=== PATIENT | female | born 1930 | race African-American/Black ===

== ENCOUNTER 2016-12-12 10:09 | Inpatient (IN) | payer OTHER ==
[~2016-12-12] VITALS: Ht 167.6 cm; Wt 62.0 kg
[2016-12-12 10:51] LABS: BASOPHILS % (AUTO) 0.3 % (0.0-2.0); EOSINOPHILS % (AUTO) 1.7 % (1.0-6.0); HEMOGLOBIN 11.2 g/dL (12.0-16.0); LYMPHOCYTES # (AUTO) 5.2 K/uL (1.0-4.8); LYMPHOCYTES % (AUTO) 43.8 % (22.0-44.0); MEAN CORPUSCULAR VOLUME 94 fL (80-100); MONOCYTES # (AUTO) 0.5 K/uL (0.1-1.0); MONOCYTES % (AUTO) 4.2 % (2.0-9.0); PLATELET COUNT (AUTO) 160 K/uL (150-450); RED BLOOD CELL COUNT(AUTO) 3.72 MIL/uL (4.00-5.20); RED CELL DISTRIBUTION WIDTH 14.9 % (11.5-14.5); WHITE BLOOD COUNT (AUTO) 11.9 K/uL (4.5-11.0)
[2016-12-12 11:00] LABS: CREATININE 2.2 mg/dL (0.60-1.30); INR 1.1 (0.9-1.1); POTASSIUM 5.2 mmol/L (3.5-5.1); PROTHROMBIN TIME 11.6 SEC (9.4-11.6)
[2016-12-12] MEDS: PROPOFOL 1000 MG/ISO-OSM 100 ML IV PRN ×3 (11:00→21:41)
[2016-12-12 11:06] LABS: APPEARANCE,URINE CLOUDY (CLEAR); GLUCOSE, URINE (UA) NEGATIVE (NEGATIVE); KETONES,URINE NEGATIVE (NEGATIVE); LEUKOCYTE ESTERASE ,URINE SMALL (NEGATIVE); OCCULT BLOOD,URINE NEGATIVE (NEGATIVE); PROTEIN,URINE SEE CONFIRM (NEGATIVE)
[2016-12-12 11:07] LABS: ADD UA MICROSCOPIC YES
[2016-12-12] MEDS ORDERED: PROPOFOL 1000 MG/ISO-OSM 100 ML IV ONE (11:09)
[2016-12-12] MEDS ORDERED: DOPamine HCL 400 MG/D5%-WATER 250 ML IV PRN (11:14)
[2016-12-12 11:16] LABS: SULFOSALICYLIC ACID,URINE 3+ (Negative)
[2016-12-12 11:17] LABS: RBC,URINE 0-2 /HPF (0-2)
[2016-12-12 11:18] LABS: SQUAMOUS EPITHELIAL CELL,UR Few /LPF (None Seen)
[2016-12-12 11:25] LABS: BILIRUBIN,TOTAL 0.3 mg/dL (0.1-1.0); CREATINE KINASE MB 24.7 ng/mL (0-5); TOTAL PROTEIN, SERUM 6.9 g/dL (6.4-8.2)
[2016-12-12 11:29] LABS: ABG A-A DIFF O2 192.9 mmHg (10-20.0); ABG BASE EXCESS -3.3 mmol/L (-2.0-3.0); ABG OXYHEMOGLOBIN 98.7 % (94.0-100.0); ABG PCO2 38 mmHg (35-45); ABG PH 7.381 (7.35-7.450)
[2016-12-12 11:30] LABS: ALLEN TEST, BLOOD GAS Positive
[2016-12-12] MEDS ORDERED: ALBUTEROL SULFATE 2.5 MG/0.5 ML NEB SOLUTION NEB PRN (12:00)
[2016-12-12] MEDS ORDERED: DEXTROSE 50%-WATER 25 GM/50 ML SYRINGE IVP PRN (12:15)
[2016-12-12] MEDS ORDERED: CARV12 PO (12:27)
[2016-12-12] MEDS ORDERED: CACARB500 PO (12:27)
[2016-12-12] MEDS ORDERED: GABA-533 PO (12:27)
[2016-12-12] MEDS ORDERED: MIRAUD PO (12:27)
[2016-12-12] MEDS ORDERED: HYDR-3965 PO (12:27)
[2016-12-12] MEDS ORDERED: OMEG300C3 PO (12:27)
[2016-12-12] MEDS ORDERED: ONDA4 PO (12:27)
[2016-12-12] MEDS ORDERED: FERG325 PO (12:27)
[2016-12-12] MEDS ORDERED: ISOS10TA16 PO (12:27)
[2016-12-12] MEDS ORDERED: ASPI81 PO (12:27)
[2016-12-12] MEDS ORDERED: ALBU8HFA IH (12:27)
[2016-12-12] MEDS ORDERED: HYDR50 PO (12:27)
[2016-12-12] MEDS ORDERED: XALA2.5OS OU (12:27)
[2016-12-12] MEDS ORDERED: LOSA50TA37 PO (12:27)
[2016-12-12] MEDS ORDERED: BUME1TAB30 PO (12:27)
[2016-12-12] MEDS ORDERED: OMEP20 PO (12:27)
[2016-12-12] MEDS ORDERED: METF500T4 PO (12:27)
[2016-12-12] MEDS ORDERED: 0.9% SODIUM CHLORIDE 5 ML NEB SOLUTION NEB ONE ×2 (13:13→19:37)
[2016-12-12] MEDS: ALBUTEROL SULFATE 2.5 MG/0.5 ML NEB SOLUTION NEB SCH ×2 (13:17→19:41)
[2016-12-12] MEDS ORDERED: SODIUM CHLORIDE 0.9% 250 ML IV ONE (13:36)
[2016-12-12] MEDS: CefTRIAXone 1 GM/DEXTROSE 50 ML IV SCH (13:36)
[2016-12-12 14:00] VITALS: BP 101/35
[2016-12-12] MEDS: DEXTROSE 5%-0.45% SODIUM CHL 1,000 ML IV SCH (15:03)
[2016-12-12 16:00] VITALS: BP 121/56
[2016-12-12] MEDS ORDERED: 0.9% SODIUM CHLORIDE 10 ML SYRINGE IVP PRN (16:00)
[2016-12-12] MEDS: HEPARIN SODIUM,PORCINE 5,000 UNITS/ML VIAL SQ SCH ×2 (16:15→23:16)
[2016-12-12] MEDS ORDERED: SODIUM BICARBONATE [ADULT] 8.4% 50 MEQ/50 ML SYRINGE IVP ONE (16:32)
[2016-12-12] MEDS ORDERED: DOPamine HCL/D5W 400 MG/250 ML IV BAG IV ONE (16:32)
[2016-12-12] MEDS ORDERED: EPINEPHrine 1:10,000 [1 MG/10 ML] SYRINGE IVP ONE (16:32)
[2016-12-12] MEDS ORDERED: SODIUM CHLORIDE 0.9% 500 ML IV ONE (17:21)
[2016-12-12] MEDS: INSULIN ASPART 100 UNITS/ML SQ PRN ×2 (19:27→23:15)
[2016-12-12 20:00] VITALS: BP 141/59
[2016-12-12 20:50] LABS: ALBUMIN 3.4 g/dL (3.4-5.0); BILIRUBIN,TOTAL 0.4 mg/dL (0.1-1.0); CALCIUM, TOTAL 8.9 mg/dL (8.8-10.5); CREATININE 1.8 mg/dL (0.60-1.30); MAGNESIUM 2.1 mg/dL (1.80-2.40); POTASSIUM 4.5 mmol/L (3.5-5.1); TOTAL PROTEIN, SERUM 7.4 g/dL (6.4-8.2)
[2016-12-12 22:41] LABS: GLUCOSE COMMENT 1 Received Meds; GLUCOSE,POINT OF CARE 279 MG/DL (70-110)
[2016-12-13] VITALS (8 sets, daily range): BP systolic 130–165; BP diastolic 36–56
[2016-12-13] MEDS: DEXTROSE 5%-0.45% SODIUM CHL 1,000 ML IV SCH ×2 (00:50→12:43)
[2016-12-13] MEDS ORDERED: DOPamine HCL 400 MG/D5%-WATER 250 ML IV PRN (02:21)
[2016-12-13] MEDS: ALBUTEROL SULFATE 2.5 MG/0.5 ML NEB SOLUTION NEB SCH ×4 (02:31→20:47)
[2016-12-13] MEDS ORDERED: 0.9% SODIUM CHLORIDE 5 ML NEB SOLUTION NEB ONE ×4 (02:32→20:47)
[2016-12-13] MEDS: PROPOFOL 1000 MG/ISO-OSM 100 ML IV PRN ×3 (02:55→21:09)
[2016-12-13] MEDS: MORPHINE SULFATE 2 MG/ML SYRINGE IVP PRN (03:04)
[2016-12-13] MEDS: INSULIN ASPART 100 UNITS/ML SQ PRN ×4 (04:26→23:01)
[2016-12-13 05:33] LABS: CALCIUM, TOTAL 8.8 mg/dL (8.8-10.5); CREATININE 1.38 mg/dL (0.60-1.30); POTASSIUM 4.3 mmol/L (3.5-5.1)
[2016-12-13 05:39] LABS: ALBUMIN 3.2 g/dL (3.4-5.0); BILIRUBIN,TOTAL 0.4 mg/dL (0.1-1.0); CHOL/HDL RATIO 5.3 (3.9-5.7); MAGNESIUM 2.1 mg/dL (1.80-2.40); PHOSPHORUS 3.5 mg/dL (2.5-4.9); TOTAL PROTEIN, SERUM 7.2 g/dL (6.4-8.2)
[2016-12-13 05:48] LABS: BASOPHILS # (AUTO) 0.02 K/uL (0.00-0.20); BASOPHILS % (AUTO) 0.2 % (0.0-2.0); EOSINOPHILS # (AUTO) 0.02 K/uL (0.00-0.70); EOSINOPHILS % (AUTO) 0.17 % (1.0-6.0); HEMATOCRIT 29.7 % (36-46); LYMPHOCYTES # (AUTO) 0.9 K/uL (1.0-4.8); MEAN CORPUSCULAR HEMOGLOBIN 30.6 pg (26.0-34.0); MEAN CORPUSCULAR HGB CONC 33.5 G/dL (31.0-37.0); MEAN CORPUSCULAR VOLUME 91 fL (80-100); MONOCYTES # (AUTO) 0.7 K/uL (0.1-1.0); MONOCYTES % (AUTO) 6.7 % (2.0-9.0); NEUTROPHILS # (AUTO) 9.4 K/uL (1.8-7.7); NEUTROPHILS % (AUTO) 85.1 % (40.0-70.0); PLATELET COUNT (AUTO) 170 K/uL (150-450); RED BLOOD CELL COUNT(AUTO) 3.25 MIL/uL (4.00-5.20); RED CELL DISTRIBUTION WIDTH 14.4 % (11.5-14.5)
[2016-12-13 06:04] LABS: HEMOGLOBIN A1C 7.4 % (4.5-6.2)
[2016-12-13] MEDS ORDERED: SODIUM CHLORIDE 0.9% 500 ML IV ONE (07:46)
[2016-12-13 08:13] LABS: VITAMIN B12 LEVEL 1946 pg/mL (211-911)
[2016-12-13] MEDS ORDERED: HEPARIN SODIUM 25000 UNITS/D5W 250 ML IV PRN (08:45)
[2016-12-13] MEDS ORDERED: HEPARIN SODIUM,PORCINE 5,000 UNITS/ML VIAL IVP PRN ×2 (08:45)
[2016-12-13] MEDS ORDERED: HEPARIN SODIUM,PORCINE 5,000 UNITS/ML VIAL IVP ONE (09:00)
[2016-12-13] MEDS: ASPIRIN 81 MG CHEWABLE TABLET PO SCH ×2 (09:10→20:15)
[2016-12-13] MEDS: PANTOPRAZOLE SODIUM 40 MG/VIAL IVP SCH (09:10)
[2016-12-13 09:32] LABS: INR 1.1 (0.9-1.1); PROTHROMBIN TIME 11.3 SEC (9.4-11.6)
[2016-12-13 09:37] LABS: GLUCOSE COMMENT 1 Received Meds; GLUCOSE,POINT OF CARE 171 MG/DL (70-110)
[2016-12-13 09:37] LABS: GLUCOSE COMMENT 1 Received Meds; GLUCOSE,POINT OF CARE 142 MG/DL (70-110)
[2016-12-13 11:29] LABS: ALBUMIN 3.1 g/dL (3.4-5.0); BILIRUBIN,TOTAL 0.5 mg/dL (0.1-1.0); CALCIUM, TOTAL 8.8 mg/dL (8.8-10.5); CREATININE 1.34 mg/dL (0.60-1.30); PHOSPHORUS 3.5 mg/dL (2.5-4.9); POTASSIUM 3.7 mmol/L (3.5-5.1); TOTAL PROTEIN, SERUM 6.9 g/dL (6.4-8.2)
[2016-12-13] MEDS: CefTRIAXone 1 GM/DEXTROSE 50 ML IV SCH (12:43)
[2016-12-13] MEDS ORDERED: AMIODARONE HCL 360 MG in DEXTROSE 5%-WATER 242.8 ML IV ONE (13:30)
[2016-12-13] MEDS ORDERED: ACETAMINOPHEN 650 MG/20.3 ML SOLUTION UDCUP NG SCH ×2 (14:00→20:00)
[2016-12-13 17:22] LABS: BILIRUBIN,TOTAL 0.3 mg/dL (0.1-1.0); CALCIUM, TOTAL 8.5 mg/dL (8.8-10.5); CREATININE 1.36 mg/dL (0.60-1.30); MAGNESIUM 1.9 mg/dL (1.80-2.40); PHOSPHORUS 3.4 mg/dL (2.5-4.9); POTASSIUM 3.7 mmol/L (3.5-5.1); TOTAL PROTEIN, SERUM 6.7 g/dL (6.4-8.2)
[2016-12-13 17:27] LABS: GLUCOSE,POINT OF CARE 142 MG/DL (70-110)
[2016-12-13 17:27] LABS: GLUCOSE COMMENT 1 Received Meds; GLUCOSE,POINT OF CARE 181 MG/DL (70-110)
[2016-12-13] MEDS ORDERED: AMIODARONE HCL 540 MG in DEXTROSE 5%-WATER 239.2 ML IV ONE (19:30)
[2016-12-13] MEDS: CEFEPIME HCL 1 GM in DEXTROSE 5%-WATER 50 ML IV SCH (21:21)
[2016-12-14] VITALS (8 sets, daily range): BP systolic 131–163; BP diastolic 28–57
[2016-12-14] MEDS ORDERED: 0.9% SODIUM CHLORIDE 5 ML NEB SOLUTION NEB ONE ×4 (01:26→20:19)
[2016-12-14] MEDS: ALBUTEROL SULFATE 2.5 MG/0.5 ML NEB SOLUTION NEB SCH ×4 (01:27→20:19)
[2016-12-14] MEDS: DEXTROSE 5%-0.45% SODIUM CHL 1,000 ML IV SCH ×2 (01:46→14:15)
[2016-12-14] MEDS: PROPOFOL 1000 MG/ISO-OSM 100 ML IV PRN ×3 (03:38→20:29)
[2016-12-14] MEDS: INSULIN ASPART 100 UNITS/ML SQ PRN ×3 (05:02→22:34)
[2016-12-14 06:10] LABS: BASOPHILS % (AUTO) 0.1 % (0.0-2.0); EOSINOPHILS % (AUTO) 1.3 % (1.0-6.0); HEMATOCRIT 26.3 % (36-46); HEMOGLOBIN 8.7 g/dL (12.0-16.0); LYMPHOCYTES # (AUTO) 1.6 K/uL (1.0-4.8); LYMPHOCYTES % (AUTO) 14.5 % (22.0-44.0); MEAN CORPUSCULAR HEMOGLOBIN 30.5 pg (26.0-34.0); MEAN CORPUSCULAR VOLUME 93 fL (80-100); MONOCYTES # (AUTO) 0.7 K/uL (0.1-1.0); MONOCYTES % (AUTO) 6.2 % (2.0-9.0); NEUTROPHILS # (AUTO) 8.4 K/uL (1.8-7.7); NEUTROPHILS % (AUTO) 77.9 % (40.0-70.0); PLATELET COUNT (AUTO) 150 K/uL (150-450); RED BLOOD CELL COUNT(AUTO) 2.84 MIL/uL (4.00-5.20); RED CELL DISTRIBUTION WIDTH 14.4 % (11.5-14.5); WHITE BLOOD COUNT (AUTO) 10.8 K/uL (4.5-11.0)
[2016-12-14 06:25] LABS: ALBUMIN 2.8 g/dL (3.4-5.0); BILIRUBIN,TOTAL 0.4 mg/dL (0.1-1.0); CALCIUM, TOTAL 8.4 mg/dL (8.8-10.5); CREATININE 1.28 mg/dL (0.60-1.30); POTASSIUM 3.5 mmol/L (3.5-5.1); TOTAL PROTEIN, SERUM 6.5 g/dL (6.4-8.2)
[2016-12-14 06:47] LABS: GLUCOSE COMMENT 1 Received Meds; GLUCOSE,POINT OF CARE 185 MG/DL (70-110)
[2016-12-14 06:47] LABS: GLUCOSE COMMENT 1 Received Meds; GLUCOSE,POINT OF CARE 185 MG/DL (70-110)
[2016-12-14 07:59] LABS: ABG A-A DIFF O2 63.8 mmHg (10-20.0); ABG BASE EXCESS 2.6 mmol/L (-2.0-3.0); ABG HCO3 26.8 mmol/L (22.0-26.0); ABG OXYHEMOGLOBIN 96.8 % (94.0-100.0); ABG PCO2 36 mmHg (35-45); ABG PH 7.481 (7.35-7.450); TEMPERATURE, FAHRENHEIT, BG 98.6 FAHREN (96.0-98.6)
[2016-12-14] MEDS ORDERED: SODIUM CHLORIDE 0.9% 500 ML IV ONE (08:51)
[2016-12-14] MEDS: ASPIRIN 81 MG CHEWABLE TABLET PO SCH (08:54)
[2016-12-14] MEDS ORDERED: SODIUM CHLORIDE 0.9% 250 ML IV ONE (08:54)
[2016-12-14] MEDS: METOPROLOL TARTRATE 25 MG TABLET PO SCH ×2 (08:54→20:28)
[2016-12-14] MEDS: PANTOPRAZOLE SODIUM 40 MG/VIAL IVP SCH (08:54)
[2016-12-14] MEDS: ACETAMINOPHEN 325 MG TABLET PO PRN ×2 (08:54→14:18)
[2016-12-14] MEDS: POTASSIUM CHL 10 MEQ/WATER 50 ML IV SCH ×4 (08:54→11:04)
[2016-12-14] MEDS: CEFEPIME HCL 1 GM in DEXTROSE 5%-WATER 50 ML IV SCH ×2 (10:25→21:15)
[2016-12-14 10:30] LABS: MAGNESIUM 1.8 mg/dL (1.80-2.40); PHOSPHORUS 3.5 mg/dL (2.5-4.9)
[2016-12-14 11:57] LABS: GLUCOSE COMMENT 1 Received Meds; GLUCOSE,POINT OF CARE 167 MG/DL (70-110)
[2016-12-14] MEDS ORDERED: AMIODARONE HCL 750 MG in DEXTROSE 5%-WATER 485 ML IV SCH (13:30)
[2016-12-14 17:58] LABS: GLUCOSE,POINT OF CARE 138 MG/DL (70-110)
[2016-12-14] MEDS: MORPHINE SULFATE 2 MG/ML SYRINGE IVP PRN (19:21)
[2016-12-14] MEDS: LORazepam 2 MG/ML VIAL IVP PRN (21:37)
[2016-12-15] VITALS (9 sets, daily range): BP systolic 118–167; BP diastolic 27–73
[2016-12-15] MEDS: MORPHINE SULFATE 2 MG/ML SYRINGE IVP PRN ×3 (01:13→20:52)
[2016-12-15] MEDS: PROPOFOL 1000 MG/ISO-OSM 100 ML IV PRN ×4 (01:48→19:55)
[2016-12-15] MEDS: ALBUTEROL SULFATE 2.5 MG/0.5 ML NEB SOLUTION NEB SCH ×4 (03:00→19:39)
[2016-12-15] MEDS ORDERED: 0.9% SODIUM CHLORIDE 5 ML NEB SOLUTION NEB ONE ×3 (03:00→19:38)
[2016-12-15 05:22] LABS: ALBUMIN 2.6 g/dL (3.4-5.0); BILIRUBIN,TOTAL 0.4 mg/dL (0.1-1.0); CALCIUM, TOTAL 8.4 mg/dL (8.8-10.5); CREATININE 1.3 mg/dL (0.60-1.30); PHOSPHORUS 2.7 mg/dL (2.5-4.9); TOTAL PROTEIN, SERUM 6.2 g/dL (6.4-8.2)
[2016-12-15 05:42] LABS: GLUCOSE COMMENT 1 Received Meds; GLUCOSE,POINT OF CARE 161 MG/DL (70-110)
[2016-12-15 05:42] LABS: GLUCOSE COMMENT 1 Received Meds; GLUCOSE,POINT OF CARE 150 MG/DL (70-110)
[2016-12-15 06:30] LABS: BASOPHILS # (AUTO) 0.04 K/uL (0.00-0.20); BASOPHILS % (AUTO) 0.4 % (0.0-2.0); EOSINOPHILS # (AUTO) 0.23 K/uL (0.00-0.70); EOSINOPHILS % (AUTO) 2.62 % (1.0-6.0); HEMATOCRIT 21.3 % (36-46); HEMOGLOBIN 7.2 g/dL (12.0-16.0); LYMPHOCYTES # (AUTO) 1.4 K/uL (1.0-4.8); LYMPHOCYTES % (AUTO) 15.8 % (22.0-44.0); MEAN CORPUSCULAR HGB CONC 33.7 G/dL (31.0-37.0); MEAN CORPUSCULAR VOLUME 92 fL (80-100); MONOCYTES # (AUTO) 0.6 K/uL (0.1-1.0); MONOCYTES % (AUTO) 6.7 % (2.0-9.0); NEUTROPHILS # (AUTO) 6.4 K/uL (1.8-7.7); NEUTROPHILS % (AUTO) 74.5 % (40.0-70.0); PLATELET COUNT (AUTO) 116 K/uL (150-450); RED BLOOD CELL COUNT(AUTO) 2.31 MIL/uL (4.00-5.20); RED CELL DISTRIBUTION WIDTH 14.9 % (11.5-14.5); WHITE BLOOD COUNT (AUTO) 8.6 K/uL (4.5-11.0)
[2016-12-15 08:27] LABS: ABG A-A DIFF O2 47.5 mmHg (10-20.0); ABG BASE EXCESS 0.4 mmol/L (-2.0-3.0); ABG PCO2 32 mmHg (35-45); ABG PH 7.486 (7.35-7.450); TEMPERATURE, FAHRENHEIT, BG 98.6 FAHREN (96.0-98.6)
[2016-12-15] MEDS: METOPROLOL TARTRATE 25 MG TABLET PO SCH ×2 (08:37→20:30)
[2016-12-15] MEDS ORDERED: ASPIRIN 81 MG CHEWABLE TABLET PO SCH (09:00)
[2016-12-15] MEDS: PANTOPRAZOLE SODIUM 40 MG/VIAL IVP SCH (10:11)
[2016-12-15] MEDS: CEFEPIME HCL 1 GM in DEXTROSE 5%-WATER 50 ML IV SCH (10:11)
[2016-12-15] MEDS ORDERED: ISOS20TA9 PO (12:06)
[2016-12-15] MEDS: INSULIN ASPART 100 UNITS/ML SQ PRN ×2 (14:22→23:13)
[2016-12-15] MEDS: ACETAMINOPHEN 325 MG TABLET PO PRN ×2 (14:30→20:39)
[2016-12-15] MEDS ORDERED: LACTULOSE 20 GM/30 ML SOLUTION UDCUP NG PRN (15:15)
[2016-12-15] MEDS ORDERED: SENNA 218 MG/5 ML LIQUID ORAL.SYG NG PRN (15:15)
[2016-12-15] MEDS ORDERED: SODIUM CHLORIDE 0.9% 500 ML IV ONE (15:44)
[2016-12-15] MEDS: PIPERACILLIN/TAZO 3.375 GM/D5W 50 ML IV SCH ×2 (16:57→21:40)
[2016-12-15] MEDS: LORazepam 2 MG/ML VIAL IVP PRN (23:33)
[2016-12-16] VITALS (16 sets, daily range): BP systolic 124–191; BP diastolic 30–48
[2016-12-16] MEDS ORDERED: 0.9% SODIUM CHLORIDE 5 ML NEB SOLUTION NEB ONE ×3 (01:51→14:32)
[2016-12-16] MEDS: ALBUTEROL SULFATE 2.5 MG/0.5 ML NEB SOLUTION NEB SCH ×3 (01:57→14:31)
[2016-12-16] MEDS ORDERED: SODIUM CHLORIDE 0.9% 500 ML IV ONE (02:36)
[2016-12-16] MEDS: LORazepam 2 MG/ML VIAL IVP PRN ×2 (04:06→12:00)
[2016-12-16] MEDS: PIPERACILLIN/TAZO 3.375 GM/D5W 50 ML IV SCH ×3 (04:08→16:32)
[2016-12-16] MEDS: INSULIN ASPART 100 UNITS/ML SQ PRN ×3 (04:33→17:25)
[2016-12-16 04:52] LABS: GLUCOSE COMMENT 1 Received Meds; GLUCOSE,POINT OF CARE 164 MG/DL (70-110)
[2016-12-16 04:52] LABS: GLUCOSE COMMENT 1 Received Meds; GLUCOSE,POINT OF CARE 174 MG/DL (70-110)
[2016-12-16 06:02] LABS: BASOPHILS % (AUTO) 0.4 % (0.0-2.0); EOSINOPHILS % (AUTO) 2.5 % (1.0-6.0); LYMPHOCYTES # (AUTO) 0.9 K/uL (1.0-4.8); LYMPHOCYTES % (AUTO) 10.1 % (22.0-44.0); MEAN CORPUSCULAR HEMOGLOBIN 30.2 pg (26.0-34.0); MEAN CORPUSCULAR HGB CONC 32.6 G/dL (31.0-37.0); MEAN CORPUSCULAR VOLUME 93 fL (80-100); MONOCYTES # (AUTO) 0.9 K/uL (0.1-1.0); MONOCYTES % (AUTO) 9.5 % (2.0-9.0); NEUTROPHILS % (AUTO) 77.5 % (40.0-70.0); PLATELET COUNT (AUTO) 120 K/uL (150-450); RED BLOOD CELL COUNT(AUTO) 2.18 MIL/uL (4.00-5.20); RED CELL DISTRIBUTION WIDTH 14.7 % (11.5-14.5)
[2016-12-16 06:08] LABS: ALBUMIN 2.5 g/dL (3.4-5.0); BILIRUBIN,TOTAL 0.6 mg/dL (0.1-1.0); CALCIUM, TOTAL 8.5 mg/dL (8.8-10.5); CREATININE 1.57 mg/dL (0.60-1.30); MAGNESIUM 2.2 mg/dL (1.80-2.40); TOTAL PROTEIN, SERUM 6.3 g/dL (6.4-8.2)
[2016-12-16 06:46] LABS: HEMOGLOBIN 6.6 g/dL (12.0-16.0)
[2016-12-16 06:47] LABS: HEMATOCRIT 20.2 % (36-46)
[2016-12-16 07:23] LABS: GLUCOSE COMMENT 1 Received Meds; GLUCOSE,POINT OF CARE 160 MG/DL (70-110)
[2016-12-16 07:26] LABS: GLUCOSE,POINT OF CARE 145 MG/DL (70-110)
[2016-12-16] MEDS: PROPOFOL 1000 MG/ISO-OSM 100 ML IV PRN ×3 (07:31→16:32)
[2016-12-16] MEDS: PANTOPRAZOLE SODIUM 40 MG/VIAL IVP SCH (08:02)
[2016-12-16] MEDS ORDERED: SODIUM CHLORIDE 0.9% 250 ML IV ONE (08:02)
[2016-12-16] MEDS ORDERED: ASPIRIN 81 MG CHEWABLE TABLET PO SCH (09:00)
[2016-12-16 09:08] LABS: RBC MORPHOLOGY COMMENT NORMAL RBC MORPH
[2016-12-16] MEDS: METOPROLOL TARTRATE 25 MG TABLET PO SCH (09:24)
[2016-12-16 11:33] LABS: ABG A-A DIFF O2 60.7 mmHg (10-20.0); ABG BASE EXCESS -4.4 mmol/L (-2.0-3.0); ABG HCO3 21.4 mmol/L (22.0-26.0); ABG OXYHEMOGLOBIN 97.1 % (94.0-100.0); ABG PCO2 28 mmHg (35-45); ABG PH 7.455 (7.35-7.450); TEMPERATURE, FAHRENHEIT, BG 98.6 FAHREN (96.0-98.6)
[2016-12-16 12:47] LABS: GLUCOSE COMMENT 1 Received Meds; GLUCOSE,POINT OF CARE 165 MG/DL (70-110)
[2016-12-16] MEDS ORDERED: METOPROLOL TARTRATE 25 MG TABLET PO ONE (13:45)
[2016-12-16] MEDS ORDERED: HydrALAZINE HCL 20 MG/ML VIAL IVP PRN (13:45)
[2016-12-16 13:46] LABS: HEPATITIS Bs ANTIGEN SCREEN P Negative (Negative); HEPATITIS C AB SCREEN <0.1 s/co ratio (0.0-0.9)
[2016-12-16 14:12] LABS: BASOPHILS % (AUTO) 0.4 % (0.0-2.0); EOSINOPHILS % (AUTO) 3.6 % (1.0-6.0); HEMATOCRIT 27.9 % (36-46); HEMOGLOBIN 9.3 g/dL (12.0-16.0); LYMPHOCYTES % (AUTO) 10.9 % (22.0-44.0); MEAN CORPUSCULAR HEMOGLOBIN 30.8 pg (26.0-34.0); MEAN CORPUSCULAR HGB CONC 33.3 G/dL (31.0-37.0); MEAN CORPUSCULAR VOLUME 92 fL (80-100); MONOCYTES % (AUTO) 10.9 % (2.0-9.0); NEUTROPHILS # (AUTO) 6.9 K/uL (1.8-7.7); NEUTROPHILS % (AUTO) 74.2 % (40.0-70.0); PLATELET COUNT (AUTO) 117 K/uL (150-450); RED BLOOD CELL COUNT(AUTO) 3.02 MIL/uL (4.00-5.20); RED CELL DISTRIBUTION WIDTH 13.7 % (11.5-14.5); WHITE BLOOD COUNT (AUTO) 9.4 K/uL (4.5-11.0)
[2016-12-16 19:27] LABS: GLUCOSE COMMENT 1 Received Meds; GLUCOSE,POINT OF CARE 141 MG/DL (70-110)
[2016-12-16] MEDS ORDERED: METOPROLOL TARTRATE 25 MG TABLET PO SCH (21:00)
== END 2016-12-16 18:10 | disposition short-term general hospital (02) | DRG 208 ==
LOC: EMS 10:11 → ICU 13:20
PROVIDERS: ADMIT Hospitalist; ATTEND Hospitalist
PROC: 5A1945Z Respiratory Ventilation, 24-96 Consecutive Hours (ICD-10-PCS; 2016-12-12)
PROC: 0BH17EZ Insertion of Endotracheal Airway into Trachea, Via Natural or Artificial Opening (ICD-10-PCS; 2016-12-12)
PROC: 04HY32Z Insertion of Monitoring Device into Lower Artery, Percutaneous Approach (ICD-10-PCS; 2016-12-13)
PROC: 02HV33Z Insertion of Infusion Device into Superior Vena Cava, Percutaneous Approach (ICD-10-PCS; 2016-12-13)
PROC: B548ZZA Ultrasonography of Superior Vena Cava, Guidance (ICD-10-PCS; 2016-12-13)
PROC: 30233N1 Transfusion of Nonautologous Red Blood Cells into Peripheral Vein, Percutaneous Approach (ICD-10-PCS; principal; 2016-12-16)
DX: J96.01 Acute respiratory failure with hypoxia (principal); I49.01 Ventricular fibrillation; I46.9 Cardiac arrest, cause unspecified; N17.9 Acute kidney failure, unspecified; G93.1 Anoxic brain damage, not elsewhere classified; M62.82 Rhabdomyolysis; I13.0 Hypertensive heart and chronic kidney disease with heart failure and stage 1 through stage 4 chronic kidney disease, or unspecified chronic kidney disease; I47.2 Ventricular tachycardia; N18.9 Chronic kidney disease, unspecified; R79.89 Other specified abnormal findings of blood chemistry; D64.9 Anemia, unspecified; I50.9 Heart failure, unspecified; R74.8 Abnormal levels of other serum enzymes; E11.22 Type 2 diabetes mellitus with diabetic chronic kidney disease; I25.10 Atherosclerotic heart disease of native coronary artery without angina pectoris; E78.5 Hyperlipidemia, unspecified; Z78.1 Physical restraint status; Z88.5 Allergy status to narcotic agent; Z88.8 Allergy status to other drugs, medicaments and biological substances
CPT/HCPCS: 31500; 51702; 70450; 74000; 76700; 80074; 82607; 82746; 82805; 82962; 83036; 83540; 83550; 83735; 84100; 86850; 86900; 86901; 86920; 87040; 87070; 87081; 87086; 87205; 92950; 93005; 93306; 94002; 94003; 94640; 96365; 96366; 99291; 99292; C9113; J0171; J0282; J0360; J0692; J0696; J1265; J1644; J2060; J2270; J2543; J2704; J3480; J3490; J7040; J7050; J7060; P9016